=== PATIENT | female | born 1985 | race American Indian/Alaskan Native ===

== ENCOUNTER 2017-08-06 05:23 | Emergency (ER) | payer OTHER ==
[2017-08-06] MEDS: TYLENOL PO ONE ×2 (05:58→07:23)
--- NOTE | 2017-08-06 06:22 | XRay Report ---
FINAL REPORT EXAM: XR CHEST ROUTINE 2V HISTORY: cough TECHNIQUE: PA and lateral chest radiographs PRIORS: None. FINDINGS: No mediastinal shift. Cardiac silhouette is not enlarged. No pneumothorax, effusion, or focal pulmonary opacity. No acute skeletal finding. IMPRESSION: No focal pulmonary opacity.
--- NOTE | 2017-08-06 07:22 | Emergency Department Report ---
- General Chief Complaint: Upper Respiratory Infection Stated Complaint: RUNNING FEVER,CHILLS, CHEST PAIN, Time Seen by Provider: 08/06/17 07:08 Source: patient, family Mode of arrival: Ambulatory Limitations: No Limitations - History of Present Illness Initial Comments: 31-year-old female past medical history GERD presents with complaint of 3 days of fever or chills earache sore throat and some myalgias. Patient is awake alert and oriented 3 fully lucid. Nonproductive cough. Patient denies smoking. Mostly complaining of right-sided earache and sore throat. MD Complaint: fever, cough Onset/Timin -: days(s) Severity: mild Severity scale (0 -10): 5 Quality: aching Consistency: constant Improves With: nothing Worsens With: nothing Associated Symptoms: fever, cough Treatments Prior to Arrival: Acetaminophen - Related Data Home Medications Medication Instructions Recorded Confirmed Last Taken Loratadine [Claritin] 10 mg PO QDAY 08/06/17 08/06/17 Unknown Previous Rx's Medication Instructions Recorded Last Taken Type ALBUTEROL Inhaler [ProAir HFA 1 puff IH Q4H PRN #1 inha 08/06/17 Unknown Rx Inhaler] Acetaminophen [Pain Relief Adult] 500 mg PO Q8H PRN #1 liquid 08/06/17 Unknown Rx Azithromycin [Zithromax Z-BOGDAN] 250 mg PO QDAY #1 pack 08/06/17 Unknown Rx Dextromethorphan/Benzocaine 1 each PO Q4H PRN #1 box 08/06/17 Unknown Rx [Cepacol Sorethroat-Cough Preston] Allergies Allergy/AdvReac Type Severity Reaction Status Date / Time Penicillins Allergy Intermediate Unknown Verified 08/06/17 05:40 ibuprofen Allergy Vomiting Verified 08/06/17 05:40 ED Review of Systems ROS: Stated complaint: RUNNING FEVER,CHILLS, CHEST PAIN, Other details as noted in HPI Constitutional: fever, malaise. denies: chills Eyes: denies: eye pain, eye discharge, vision change ENT: ear pain. denies: throat pain Respiratory: denies: cough, shortness of breath, wheezing Cardiovascular: denies: chest pain, palpitations Endocrine: no symptoms reported Gastrointestinal: denies: abdominal pain, nausea, diarrhea Genitourinary: denies: urgency, dysuria, discharge Musculoskeletal: denies: back pain, joint swelling, arthralgia Skin: denies: rash, lesions Neurological: denies: headache, weakness, paresthesias Psychiatric: denies: anxiety, depression Hematological/Lymphatic: denies: easy bleeding, easy bruising ED Past Medical Hx - Past Medical History Previous Medical History?: Yes Additional medical history: Stomach Ulcer - Surgical History Past Surgical History?: Yes Additional Surgical History: Gallbladder, tonsils removerd, appendix removed - Social History Smoking Status: Never Smoker Substance Use Type: None - Medications Home Medications: Home Medications Medication Instructions Recorded Confirmed Last Taken Type ALBUTEROL Inhaler [ProAir HFA 1 puff IH Q4H PRN #1 inha 08/06/17 Unknown Rx Inhaler] Acetaminophen [Pain Relief Adult] 500 mg PO Q8H PRN #1 liquid 08/06/17 Unknown Rx Azithromycin [Zithromax Z-BOGDAN] 250 mg PO QDAY #1 pack 08/06/17 Unknown Rx Dextromethorphan/Benzocaine 1 each PO Q4H PRN #1 box 08/06/17 Unknown Rx [Cepacol Sorethroat-Cough Preston] Loratadine [Claritin] 10 mg PO QDAY 08/06/17 08/06/17 Unknown History ED Physical Exam - General Limitations: No Limitations General appearance: alert, in no apparent distress - Head Head exam: Present: atraumatic, normocephalic - Eye Eye exam: Present: normal appearance, PERRL, EOMI - ENT ENT exam: Present: mucous membranes moist - Expanded ENT Exam Expanded TM/Canal exam: Erythema: Right TM, Bulging: Right TM (no mastoiditis on exam) Mouth exam: Present: normal external inspection Teeth exam: Present: normal inspection Throat exam: Positive: normal inspection - Neck Neck exam: Present: normal inspection, full ROM - Respiratory Respiratory exam: Present: normal lung sounds bilaterally. Absent: respiratory distress - Cardiovascular Cardiovascular Exam: Present: regular rate, normal rhythm. Absent: systolic murmur, diastolic murmur, rubs, gallop - GI/Abdominal GI/Abdominal exam: Present: soft, normal bowel sounds - Extremities Exam Extremities exam: Present: normal inspection - Back Exam Back exam: Present: normal inspection - Neurological Exam Neurological exam: Present: alert, oriented X3 - Psychiatric Psychiatric exam: Present: normal affect, normal mood - Skin Skin exam: Present: warm, dry, intact, normal color. Absent: rash ED Course Vital Signs 08/06/17 05:26 Temperature 101.1 F H Pulse Rate 93 H Respiratory 20 Rate Blood Pressure 116/64 O2 Sat by Pulse 97 Oximetry ED Medical Decision Making - Medical Decision Making A/P: Right-sided otitis media 1-Z-Bogdan, Tylenol, Zyrtec, throat lozenges, albuterol inhaler 2- f/u with PCP Critical care attestation.: If time is entered above; I have spent that time in minutes in the direct care of this critically ill patient, excluding procedure time. ED Disposition Clinical Impression: Otitis media Qualifiers: Otitis media type: unspecified Laterality: right Qualified Code(s): H66.91 - Otitis media, unspecified, right ear Disposition: TO HOME OR SELFCARE Is pt being admited?: No Does the pt Need Aspirin: No Condition: Stable Instructions: Otitis Media (ED) Prescriptions: Acetaminophen [Pain Relief Adult] 500 mg PO Q8H PRN #1 liquid PRN Reason: Fever ALBUTEROL Inhaler [ProAir HFA Inhaler] 1 puff IH Q4H PRN #1 inha PRN Reason: Cough Azithromycin [Zithromax Z-BOGDAN] 250 mg PO QDAY #1 pack Dextromethorphan/Benzocaine [Cepacol Sorethroat-Cough Preston] 1 each PO Q4H PRN #1 box PRN Reason: Sore Throat Referrals: [facility] [Provider Group] - 3-5 Days [facility] [Outside] - 3-5 Days Forms: Accompanied Note, Work/School Release Form(ED) Time of Disposition: 07:22
[2017-08-06 07:23] VITALS: BP 105/58
== END 2017-08-06 07:33 | disposition home or self-care (01) ==
LOC: ED 05:23
DX: H66.91 Otitis media, unspecified, right ear (principal); K21.9 Gastro-esophageal reflux disease without esophagitis; Z88.0 Allergy status to penicillin; Z88.6 Allergy status to analgesic agent
CPT/HCPCS: 71046; 87116; 87400; 87430; 93005; 93010; 99284

== ENCOUNTER 2017-11-20 18:35 | Emergency (ER) | payer SELFPAY ==
[2017-11-20 19:34] LABS: BUN/Creatinine Ratio 14; Blood Urea Nitrogen 13 mg/dL (7-17); Calcium 9.9 mg/dL (8.4-10.2); Hemolysis Index 7
[2017-11-20 19:38] LABS: Basophils % (Auto) 0.3 % (0.0-1.8); Eosinophils # (Auto) 0.1 K/mm3 (0.0-0.4); Eosinophils % (Auto) 1.9 % (0.0-4.3); Hematocrit 40.2 % (30.3-42.9); Hemoglobin 13.5 gm/dl (10.1-14.3); Lymphocytes # (Auto) 2.4 K/mm3 (1.2-5.4); Lymphocytes % (Auto) 41.8 % (13.4-35.0); Mean Corpuscular HGB Conc 34 % (30-34); Mean Corpuscular Hemoglobin 30 pg (28-32); Mean Corpuscular Volume 89 fl (79-97); Monocytes # (Auto) 0.4 K/mm3 (0.0-0.8); Monocytes % (Auto) 6.2 % (0.0-7.3); Platelet Count 302 K/mm3 (140-440); Red Blood Count 4.53 M/mm3 (3.65-5.03); Red Cell Distribution Width 12.3 % (13.2-15.2)
[2017-11-20] MEDS ORDERED: NACL 0.9% 1000 ML 1,000 ML IV ONE (23:19)
[2017-11-20] MEDS ORDERED: TYLENOL PO ONE (23:19)
--- NOTE | 2017-11-21 00:13 | XRay Report ---
FINAL REPORT EXAM: XR CHEST ROUTINE 2V HISTORY: cp, sob TECHNIQUE: PA and lateral views of the chest were submitted. Comparison is made to the study of 08/06/2017. FINDINGS: The lungs are clear. The heart size is normal. Pleural fluid is not seen. The bones soft tissues appear normal. IMPRESSION: Normal chest.
--- NOTE | 2017-11-21 00:37 | Emergency Department Report ---
ED Chest Pain HPI - General Chief Complaint: Chest Pain Stated Complaint: C/P/SOB/NUMBNESS/BLURRED VISION Time Seen by Provider: 11/20/17 23:12 Source: patient Mode of arrival: Ambulatory Limitations: No Limitations - History of Present Illness Initial Comments: 32-year-old female with a past medical history as H. pylori due stomach ulcer presents to the hospital complaining of intermittent left and right sided sharp chest pain and pressure. Patient states the left arm tingling, she's had shortness of breath, lightheadedness, mild blurred vision. This patient with palpation, movement, and deep inspiration. Last week patient took a 6.[address] [place]. She denies previous history of PE/DVT, control pill use , calf tenderness or edema. Patient does not smoke cigarettes or use drugs. Severity scale (0 -10): 7 - Related Data Home Medications Medication Instructions Recorded Confirmed Last Taken Loratadine [Claritin] 10 mg PO QDAY 08/06/17 08/06/17 Unknown Previous Rx's Medication Instructions Recorded Last Taken Type ALBUTEROL Inhaler [ProAir HFA 1 puff IH Q4H PRN #1 inha 08/06/17 Unknown Rx Inhaler] Acetaminophen [Pain Relief Adult] 500 mg PO Q8H PRN #1 liquid 08/06/17 Unknown Rx Azithromycin [Zithromax Z-BOGDAN] 250 mg PO QDAY #1 pack 08/06/17 Unknown Rx Dextromethorphan/Benzocaine 1 each PO Q4H PRN #1 box 08/06/17 Unknown Rx [Cepacol Sorethroat-Cough Preston] Allergies Allergy/AdvReac Type Severity Reaction Status Date / Time Penicillins Allergy Intermediate Unknown Verified 11/20/17 18:44 ibuprofen Allergy Vomiting Verified 11/20/17 18:44 Heart Score - HEART Score History: Slightly suspicious EKG: Normal Age: < 45 Risk factors: No known risk factors Troponin: < normal limit HEART Score: 0 ED Review of Systems ROS: Stated complaint: C/P/SOB/NUMBNESS/BLURRED VISION Other details as noted in HPI Comment: All other systems reviewed and negative ED Past Medical Hx - Past Medical History Previous Medical History?: No Additional medical history: Stomach Ulcer - Surgical History Hx Cholecystectomy: Yes Hx Appendectomy: Yes Additional Surgical History: tonsils removed - Social History Smoking Status: Never Smoker Substance Use Type: None - Medications Home Medications: Home Medications Medication Instructions Recorded Confirmed Last Taken Type ALBUTEROL Inhaler [ProAir HFA 1 puff IH Q4H PRN #1 inha 08/06/17 Unknown Rx Inhaler] Acetaminophen [Pain Relief Adult] 500 mg PO Q8H PRN #1 liquid 08/06/17 Unknown Rx Azithromycin [Zithromax Z-BOGDAN] 250 mg PO QDAY #1 pack 08/06/17 Unknown Rx Dextromethorphan/Benzocaine 1 each PO Q4H PRN #1 box 08/06/17 Unknown Rx [Cepacol Sorethroat-Cough Preston] Loratadine [Claritin] 10 mg PO QDAY 08/06/17 08/06/17 Unknown History ED Physical Exam - General Limitations: No Limitations - Other Other exam information: General: No limitations, patient is alert in no acute distress Head exam: Atraumatic, normocephalic Eyes exam: Normal appearance, pupils equal reactive to light, extraocular movements intact ENT: Moist mucous membrane, normal oropharynx Neck exam: Normal inspection, full range of motion, no meningismus nontender Respiratory exam: Clear to auscultation bilateral, no wheezes, rales, crackles Cardiovascular: Normal rate and rhythm, external, right-sided, and left-sided mid chest wall tenderness to palpation Abdomen: Soft, nondistended, and nontender, with normal bowel sounds, no rebound, or guarding Extremity: Full range of motion normal inspection no deformity, no calf tenderness or edema Back: Normal Inspection, full range of motion, no tenderness Neurologic: Alert, oriented x3, cranial nerves intact, no motor or sensory deficit Psychiatric: normal affect, normal mood Skin: Warm, dry, intact ED Course Vital Signs 11/20/17 11/20/17 11/20/17 18:44 20:23 20:31 Temperature 98.5 F Pulse Rate 107 H 67 Respiratory 18 14 21 Rate Blood Pressure 123/78 100/55 O2 Sat by Pulse 100 Oximetry 11/20/17 11/20/17 11/20/17 20:45 21:00 21:15 Temperature Pulse Rate 67 70 71 Respiratory 19 20 18 Rate Blood Pressure 100/55 107/71 107/71 O2 Sat by Pulse Oximetry 06/24/18 06/24/18 06/24/18 21:30 21:46 22:00 Temperature Pulse Rate 79 72 78 Respiratory 20 23 20 Rate Blood Pressure 107/71 107/71 O2 Sat by Pulse 99 98 100 Oximetry 11/20/17 11/20/17 11/20/17 22:16 22:30 22:46 Temperature Pulse Rate 72 69 68 Respiratory 11 L 10 L 13 Rate Blood Pressure 107/71 107/71 107/71 O2 Sat by Pulse 99 98 97 Oximetry 11/20/17 11/20/17 11/20/17 23:00 23:16 23:30 Temperature Pulse Rate 68 67 59 L Respiratory 11 L 10 L 17 Rate Blood Pressure 107/71 107/71 107/71 O2 Sat by Pulse 98 99 98 Oximetry 11/20/17 23:43 Temperature Pulse Rate Respiratory 20 Rate Blood Pressure O2 Sat by Pulse 98 Oximetry ED Medical Decision Making - Lab Data Result diagrams: 11/20/17 19:09 11/20/17 19:09 Lab Results 11/20/17 11/20/17 11/20/17 Range/Units 19:09 19:09 19:09 WBC 5.8 (4.5-11.0) K/mm3 RBC 4.53 (3.65-5.03) M/mm3 Hgb 13.5 (10.1-14.3) gm/dl Hct 40.2 (30.3-42.9) % MCV 89 (79-97) fl MCH 30 (28-32) pg MCHC 34 (30-34) % RDW 12.3 L (13.2-15.2) % Plt Count 302 (140-440) K/mm3 Lymph % (Auto) 41.8 H (13.4-35.0) % [place] % (Auto) 6.2 (0.0-7.3) % Eos % (Auto) 1.9 (0.0-4.3) % Baso % (Auto) 0.3 (0.0-1.8) % Lymph # 2.4 (1.2-5.4) K/mm3 [place] # 0.4 (0.0-0.8) K/mm3 Eos # 0.1 (0.0-0.4) K/mm3 Baso # 0.0 (0.0-0.1) K/mm3 Seg Neutrophils % 49.8 (40.0-70.0) % Seg Neutrophils # 2.9 (1.8-7.7) K/mm3 D-Dimer (0-234) ng/mlDDU Sodium 140 (137-145) mmol/L Potassium 4.0 (3.6-5.0) mmol/L Chloride 101.1 (98-107) mmol/L Carbon Dioxide 28 (22-30) mmol/L Anion Gap 15 mmol/L BUN 13 (7-17) mg/dL Creatinine 0.9 (0.7-1.2) mg/dL Estimated GFR > 60 ml/min BUN/Creatinine Ratio 14 % Glucose 103 H (65-100) mg/dL Calcium 9.9 (8.4-10.2) mg/dL Troponin T < 0.010 (0.00-0.029) ng/mL HCG, Qual Negative (Negative) 11/20/17 11/20/17 11/21/17 Range/Units 21:21 23:59 00:33 WBC (4.5-11.0) K/mm3 RBC (3.65-5.03) M/mm3 Hgb (10.1-14.3) gm/dl Hct (30.3-42.9) % MCV (79-97) fl MCH (28-32) pg MCHC (30-34) % RDW (13.2-15.2) % Plt Count (140-440) K/mm3 Lymph % (Auto) (13.4-35.0) % [place] % (Auto) (0.0-7.3) % Eos % (Auto) (0.0-4.3) % Baso % (Auto) (0.0-1.8) % Lymph # (1.2-5.4) K/mm3 [place] # (0.0-0.8) K/mm3 Eos # (0.0-0.4) K/mm3 Baso # (0.0-0.1) K/mm3 Seg Neutrophils % (40.0-70.0) % Seg Neutrophils # (1.8-7.7) K/mm3 D-Dimer 236.41 H (0-234) ng/mlDDU Sodium (137-145) mmol/L Potassium (3.6-5.0) mmol/L Chloride (98-107) mmol/L Carbon Dioxide (22-30) mmol/L Anion Gap mmol/L BUN (7-17) mg/dL Creatinine (0.7-1.2) mg/dL Estimated GFR ml/min BUN/Creatinine Ratio % Glucose (65-100) mg/dL Calcium (8.4-10.2) mg/dL Troponin T < 0.010 < 0.010 (0.00-0.029) ng/mL HCG, Qual (Negative) - EKG Data -: EKG Interpreted by Me EKG shows normal: sinus rhythm, axis (qrs 60), QRS complexes (qrsd 104), ST-T waves (no stemi/t inv) Rate: normal (60) - Radiology Data Radiology results: report reviewed FINAL REPORT EXAM: XR CHEST ROUTINE 2V HISTORY: cp, sob TECHNIQUE: PA and lateral views of the chest were submitted. Comparison is made to the study of 08/06/2017. FINDINGS: The lungs are clear. The heart size is normal. Pleural fluid is not seen. The bones soft tissues appear normal. IMPRESSION: Normal chest. - Medical Decision Making Chest pain is reproducible with palpation. Chest x-ray negative. D-dimer less than 250 without any DVT findings. Patient denies cardiac risk factors and has normal EKG and negative cardiac enzymes. Patient presented with mild tachycardia that improved even prior to IV fluids. Symptoms are atypical. Patient received Tylenol in the ED. She will be treated symptomatically for chest wall tenderness advised to follow-up with the primary care doctor for further workup and evaluation. pt feeling better - Differential Diagnosis PE, chest wall pain, costochondritis, [place], atypical chest pain, anemia Critical Care Time: No Critical care attestation.: If time is entered above; I have spent that time in minutes in the direct care of this critically ill patient, excluding procedure time. ED Disposition Clinical Impression: Chest wall pain Disposition: - TO HOME OR SELFCARE Is pt being admited?: No Does the pt Need Aspirin: No Condition: Stable Instructions: Chest Pain (ED) Additional Instructions: Continue Tylenol as needed for pain. Follow-up with the primary care doctor or clinic provided. Return if symptoms worsen as indicated by your discharge instructions. Referrals: [facility] [Provider Group] - 3-5 Days Time of Disposition: 02:01
[2017-11-21 02:31] VITALS: BP 94/51
== END 2017-11-21 02:34 | disposition home or self-care (01) ==
LOC: ED 19:25
DX: R07.89 Other chest pain (principal); Z90.49 Acquired absence of other specified parts of digestive tract; Z88.0 Allergy status to penicillin; Z90.89 Acquired absence of other organs; Z88.6 Allergy status to analgesic agent
CPT/HCPCS: 36415; 71046; 80048; 84484; 84703; 85025; 85379; 93005; 93010; 99284; J7030